=== PATIENT | male | born 1980 | race Two or more races ===

== ENCOUNTER 2017-07-27 00:17 | Emergency (ER) | payer BC ==
[~2017-07-27] VITALS: Ht 172.7 cm; Wt 93.5 kg
[2017-07-27 00:20] VITALS: Ht 172.7 cm; Wt 93.5 kg
--- NOTE | 2017-07-27 01:44 | ERD ---
ER Documentation Chief Complaint Chief Complaint cotton in left ear x 20 min [employer]UC[employer]OPMENT [employer]. "I can't hear" HPI 37-year-old male presenting with a piece of cotton stuck in his left ear. He was using a Q-tip when he noticed the cotton on the Q-tip had fallen off into his ear. He is complaining of decreased hearing but no significant pain. His partner tried to remove the cotton with tweezers but this did not work. ROS All systems reviewed and are negative except as per history of present illness. Allergies Allergies: Coded Allergies: No Known Allergy (Unverified , 07/27/17) PMhx/Soc Medical and Surgical Hx: pt denies Medical Hx, pt denies Surgical Hx FmHx Family History: No diabetes Physical Exam Vitals Vital Signs Date Time Temp Pulse Resp B/P Pulse Ox O2 Delivery O2 Flow Rate FiO2 07/27/17 00:20 97.8 68 18 135/94 99 Physical Exam Const: No distress, nontoxic Head: Atraumatic Eyes: Normal Conjunctiva ENT: Left external ear canal with white cotton noted deep in canal. No discharge or bleeding Neck: Full range of motion..~ No meningismus. Resp: No respiratory distress Neur: Awake and alert Psych: Normal Mood and Affect Procedures/MDM Foreign Body Removal by me: Location: Left external ear canal Anesthesia: None Technique: Removed with alligator forceps on first attempt Complications: None Patient presenting with left ear foreign body, now removed. Examined tympanic membrane and ear canal after removal and they appear normal. Patient feels much better. Discharged in a stable condition. Departure Diagnosis: Primary Impression: Foreign body of ear, left Encounter type: initial encounter Qualified Code: T16.2XXA - Foreign body of left ear, initial encounter Condition: Stable Patient Instructions: Foreign Body, Ear Canal (Removed) HERNAN AYERS MD Jul 27, 2017 01:44
== END 2017-07-27 02:30 | disposition home or self-care (01) ==
LOC: FTE 00:17
DX: T16.2XXA Foreign body in left ear, initial encounter (principal); X58.XXXA Exposure to other specified factors, initial encounter; Y92.9 Unspecified place or not applicable